=== PATIENT | female | born 1955 | race Two or more races ===

== ENCOUNTER 2016-06-13 12:03 | Emergency (ER) | payer OTHER ==
[2016-06-13 12:17] VITALS: TEMP 98.4; BMI 24.0
--- NOTE | 2016-06-13 13:02 | PDOC ---
History of Present Illness - General History Source: Patient Exam Limitations: No Limitations - History of Present Illness Initial Comments: 06/13/16 13:12 The patient is a 60 year old female with a significant past medical history of high cholesterol and rheumatoid arthritis, who presents to the ED with left sided rib cage pain that radiates to the chest since Monday. Patient states pain is reproducible while laying flat. Patient stated pain is worse while taking deep breathes. Patient states she has never had these symptoms in the past. Patient states she had tylenol with no alleviation. Patient denies cough, fever. PCP: Dr. Eugene Mccarthy <Jeromy Gu - Last Filed: 06/13/16 13:12> <Taisha Sanchez - Last Filed: 06/13/16 22:41> - General Chief Complaint: Pain Stated Complaint: SOB, LT SIDE PAIN Time Seen by Provider: 06/13/16 12:57 Past History <Jeromy Gu - Last Filed: 06/13/16 13:12> - Past Medical History Hypercholesterolemia: Yes - Surgical History Orthopedic Surgery: Yes - Psycho/Social/Smoking Cessation Hx Anxiety: No Suicidal Ideation: No Smoking Status: No Smoking History: Never smoked Have you smoked in the past 12 months: No Number of Cigarettes Smoked Daily: 0 Information on smoking cessation initiated: No Hx Alcohol Use: No Drug/Substance Use Hx: No Substance Use Type: None Hx Substance Use Treatment: No <Taisha Sanchez - Last Filed: 06/13/16 22:41> - Past Medical History Allergies/Adverse Reactions: Allergies Allergy/AdvReac Type Severity Reaction Status Date / Time No Known Allergies Allergy Verified 06/13/16 12:17 Home Medications: Ambulatory Orders Oxycodone HCl/Acetaminophen [Percocet 5/325 -] 1 tab PO Q6H #10 tablet 12/29/14 Silver Sulfadiazine 1% Top Cr [Silvadene -] 1 applic TP BID #1 jar 12/29/14 Ibuprofen [Motrin -] 600 mg PO TID PRN #21 tablet 06/13/16 Methocarbamol [Robaxin -] 500 mg PO BID PRN #14 tablet 06/13/16 Review of Systems - Review of Systems Able to Perform ROS?: Yes Comments:: 06/13/16 13:12 GENERAL/CONSTITUTIONAL: No fever or chills. No weakness. HEAD, EYES, EARS, NOSE AND THROAT: No change in vision. No ear pain or discharge. No sore throat. CARDIOVASCULAR: No chest pain or shortness of breath. RESPIRATORY: + difficulty breathing. No cough, wheezing, or hemoptysis. GASTROINTESTINAL: No nausea, vomiting, diarrhea or constipation. GENITOURINARY: No dysuria, frequency, or change in urination. MUSCULOSKELETAL: + left sided rib pain that radiates to the chest. No joint or muscle swelling or pain. No neck or back pain. SKIN: No rash NEUROLOGIC: No headache, vertigo, loss of consciousness, or change in strength/ sensation. ENDOCRINE: No increased thirst. No abnormal weight change. HEMATOLOGIC/LYMPHATIC: No anemia, easy bleeding, or history of blood clots. ALLERGIC/IMMUNOLOGIC: No hives or skin allergy. <Jeromy Gu - Last Filed: 06/13/16 13:12> *Physical Exam - Vital Signs Last Vital Signs Temp Pulse Resp BP Pulse Ox 98.4 F 73 18 111/77 99 06/13/16 12:14 06/13/16 12:14 06/13/16 12:14 06/13/16 12:14 06/13/16 12:14 - Physical Exam Comments: 06/13/16 13:13 GENERAL: Awake, alert, and fully oriented, in no acute distress. Symptoms are reproducible while patient lies flat. HEAD: No signs of trauma EYES: PERRLA, EOMI, sclera anicteric, conjunctiva clear ENT: Auricles normal inspection, hearing grossly normal, nares patent, oropharynx clear without exudates. Moist mucosa NECK: Normal ROM, supple, no lymphadenopathy, JVD, or masses LUNGS: Breath sounds equal, clear to auscultation bilaterally. No wheezes, and no crackles HEART: Regular rate and rhythm, normal S1 and S2, no murmurs, rubs or gallops ABDOMEN: Soft, nontender, normoactive bowel sounds. No guarding, no rebound. No masses EXTREMITIES: Normal range of motion, no edema. No clubbing or cyanosis. No cords, erythema, or tenderness NEUROLOGICAL: Cranial nerves II through XII grossly intact. Normal speech, normal gait SKIN: Warm, Dry, normal turgor, no rashes or lesions noted. <Jeromy Gu - Last Filed: 06/13/16 13:12> - Vital Signs Last Vital Signs Temp Pulse Resp BP Pulse Ox 98.4 F 73 18 111/77 99 06/13/16 12:14 06/13/16 12:14 06/13/16 12:14 06/13/16 12:14 06/13/16 12:14 <Taisha Sanchez - Last Filed: 06/13/16 22:41> ED Treatment Course - LABORATORY CBC & Chemistry Diagram: 06/13/16 13:10 06/13/16 13:10 <Taisha Sanchez - Last Filed: 06/13/16 22:41> Medical Decision Making - Medical Decision Making Addendum to the exam- patient's pain is reproducible to L sided mid and lower ribs along the mid-axillary line. Patient is low risk for ACS based on clinical history. Initially suspected pericarditis, but as I monitored patient, a musculoskeletal etiology became more apparent. Will treat with pain medication and muscle relaxer. <Taisha Sanchez - Last Filed: 06/13/16 22:41> *DC/Admit/Observation/Transfer - Attestations Scribe Attestion: 06/13/16 13:14 Documentation prepared by Jeromy Gu, acting as medical nurse for Taisha Sanchez MD, . <Jeromy Gu - Last Filed: 06/13/16 13:12> - Discharge Dispostion Admit: No <Taisha Sanchez - Last Filed: 06/13/16 22:41> Diagnosis at time of Disposition: Atypical chest pain - Discharge Dispostion Disposition: HOME Condition at time of disposition: Stable - Prescriptions Prescriptions: Ibuprofen [Motrin -] 600 mg PO TID PRN #21 tablet PRN Reason: Pain Methocarbamol [Robaxin -] 500 mg PO BID PRN #14 tablet PRN Reason: Muscle Spasms - Referrals Referrals: Eugene Mccarthy MD [Primary Care Provider] - - Patient Instructions Printed Discharge Instructions: DI for Atypical Chest Pain Print Language: UZBEK
[2016-06-13] MEDS ORDERED: ASPIRIN 81 MG CHEWABLE TABLETS ONE (13:09)
[2016-06-13] MEDS ORDERED: ASPIRIN 325 MG TABLET PO ONE (13:09)
[2016-06-13 13:26] LABS: EOSINOPHIL 1.2 % (0-4.5); MCH 31.6 pg (25.7-33.7); MCHC 33.4 g/dl (32.0-36.0); MEAN CELL VOLUME 94.4 fl (80-96); NEUTROPHILS 52.7 % (42.8-82.8); PLATELET COUNT 221 K/MM3 (134-434); RDW 13.2 % (11.6-15.6); WHITE BLOOD COUNT 4.8 K/mm3 (4.0-10.0)
[2016-06-13 14:03] LABS: ALBUMIN 3.8 g/dl (3.4-5.0); ANION GAP 9 (8-16); BILIRUBIN,TOTAL 0.4 mg/dL (0.2-1.0); CALCIUM 9.2 mg/dL (8.5-10.1); CO2 29 mmol/L (21-32); CREATININE 0.7 mg/dL (0.55-1.02); GLUCOSE,RANDOM 84 mg/dL (74-106); SGOT/AST 14 U/L (15-37); SGPT/ALT 20 U/L (12-78)
[2016-06-13 14:06] LABS: ALK PHOS 64 U/L (45-117); TROPONIN I < 0.02 ng/ml (0.00-0.05)
[2016-06-13] MEDS ORDERED: OXYCODONE/APAP 5/325MG COMBO TABLET PO ONE (14:30)
[2016-06-13] MEDS ORDERED: COLCHICINE 0.6 MG TABLET (FP) PO ONE (14:31)
[2016-06-13] MEDS ORDERED: COLCHICINE 0.6 MG TABLET (FP) ONE (14:50)
[2016-06-13] MEDS ORDERED: OXYCODONE/APAP 5/325MG COMBO TABLET ONE (14:50)
[2016-06-13 16:33] VITALS: BP 115/78; PULSE 51
--- NOTE | 2016-06-13 17:19 | EKG ---
Test Reason : Blood Pressure : / mmHG Vent. Rate : 056 BPM Atrial Rate : 056 BPM P-R Int : 126 ms QRS Dur : 072 ms QT Int : 420 ms P-R-T Axes : 061 051 033 degrees QTc Int : 405 ms SINUS BRADYCARDIA OTHERWISE NORMAL ECG WHEN COMPARED WITH ECG OF 11-DEC-2013 03:51, T WAVE VARIATION Confirmed by ANUJA GIPSON MD ([id number]) on 06/13/2016 5:19:16 PM Referred By: Confirmed By:ANUJA GIPSON MD
== END 2016-06-13 16:32 | disposition home or self-care (01) ==
LOC: JER 12:03
DX: R07.89 Other chest pain (principal); E78.00 Pure hypercholesterolemia, unspecified; M06.80 Other specified rheumatoid arthritis, unspecified site
CPT/HCPCS: 36415; 71010-TC; 80053; 82550; 84484; 85025; 93005; 93010; 99283-25

== ENCOUNTER 2016-08-18 10:56 | Emergency (ER) | payer OTHER ==
[2016-08-18 11:02] VITALS: BP 132/59; PULSE 73; TEMP 97.9; BMI 24.3
[2016-08-18] MEDS ORDERED: IBUPROFEN 400 MG TABLET (FP) PO ONE ×2 (12:20→12:27)
--- NOTE | 2016-08-18 12:30 | PDOC ---
History of Present Illness - General Chief Complaint: Pain Stated Complaint: SWOLLEN LT MID FINGER Time Seen by Provider: 08/18/16 11:24 History Source: Patient - History of Present Illness Occurred: reports: yesterday Upper Extremity Pain Location: left: 3rd finger, 4th finger Past History - Past Medical History Allergies/Adverse Reactions: Allergies Allergy/AdvReac Type Severity Reaction Status Date / Time No Known Allergies Allergy Verified 08/18/16 11:02 Home Medications: Ambulatory Orders NK [No Known Home Medication] 08/18/16 Hypercholesterolemia: Yes - Surgical History Orthopedic Surgery: Yes - Psycho/Social/Smoking Cessation Hx Anxiety: No Suicidal Ideation: No Smoking Status: No Smoking History: Never smoked Have you smoked in the past 12 months: No Number of Cigarettes Smoked Daily: 0 Information on smoking cessation initiated: No Hx Alcohol Use: No Drug/Substance Use Hx: No Substance Use Type: None Hx Substance Use Treatment: No Review of Systems - Review of Systems Constitutional: No: Chills, Fever Integumentary: Yes: Erythema *Physical Exam - Vital Signs Last Vital Signs Temp Pulse Resp BP Pulse Ox 97.9 F 73 18 132/59 100 08/18/16 10:59 08/18/16 10:59 08/18/16 10:59 08/18/16 10:59 08/18/16 10:59 - Physical Exam General Appearance: Yes: Appropriately Dressed. No: Apparent Distress HEENT: positive: Normal Voice Neck: positive: Supple Respiratory/Chest: negative: Respiratory Distress Extremity: positive: Tender (minimal tp to tip of L 3/5th fingers, sensation intact, cap refill intact). negative: Cyanosis, Swelling, Erythema Integumentary: positive: Dry, Warm Neurologic: positive: Fully Oriented, Alert, Normal Mood/Affect Medical Decision Making - Medical Decision Making 08/18/16 12:30 61 yo F. no sig hx, here w/ pain and numbers to L 3rd and 4th digits after shovelling snow yesterday. States skin of tip of fingers were also red yesterday. States she was wearing gloves. Reports that sxs have been improving. Pt well [facility] w/ unremarkable exam. M/l Grade 1 frostbite (pain/erythema, no cyanosis). Pt discharge with reassurance that mild frostbit usually leaves no permanent sequelae. To take otc meds as needed 08/18/16 12:40 08/18/16 12:41 *DC/Admit/Observation/Transfer Diagnosis at time of Disposition: Frostbite Qualifiers: Encounter type: initial encounter Qualified Code(s): T33.90XA - Superficial frostbite of unspecified sites, initial encounter - Discharge Dispostion Disposition: HOME Condition at time of disposition: Good - Referrals Referrals: Norman Mccarthy MD [Primary Care Provider] - - Patient Instructions Printed Discharge Instructions: DI for Frostbite, Winter Warning: Tips for Preventing Frostbite and Hypothermia Additional Instructions: Take motrin as needed for pain Print Language: SWEDISH
== END 2016-08-18 12:38 | disposition home or self-care (01) ==
LOC: JERFT 10:56
DX: T33.532A Superficial frostbite of left finger(s), initial encounter (principal); T68.XXXA Hypothermia, initial encounter; T69.8XXA Other specified effects of reduced temperature, initial encounter; X31.XXXA Exposure to excessive natural cold, initial encounter; Y93.H1 Activity, digging, shoveling and raking; Y92.89 Other specified places as the place of occurrence of the external cause; Y99.8 Other external cause status
CPT/HCPCS: 99281-25

== ENCOUNTER 2017-04-17 11:50 | Emergency (ER) | payer OTHER ==
[2017-04-17 12:06] VITALS: BP 125/70; PULSE 64; TEMP 98; BMI 25.7
--- NOTE | 2017-04-17 12:29 | PDOC ---
History of Present Illness - General Chief Complaint: Pain Stated Complaint: FOOT PAIN Time Seen by Provider: 04/17/17 12:09 History Source: Patient Exam Limitations: No Limitations - History of Present Illness Initial Comments: 04/17/17 13:22 Patient is a 61-year-old female who presents to emergency department today complaining of right foot pain. Patient states that the arch of her foot hurts. This is happened to her once before where she received an "injection" in her foot approximately 12 years ago at another institution.. She states that the pain went away after she received the injection. Today she states that that pain feels the same as it did approximately 12 years ago. She presents asking for a injection in her foot denies fevers, chills, weakness in the foot, numbness and tingling. Past History - Travel Traveled outside of the country in the last 30 days: No Close contact w/someone who was outside of country & ill: No - Past Medical History Allergies/Adverse Reactions: Allergies Allergy/AdvReac Type Severity Reaction Status Date / Time No Known Allergies Allergy Verified 04/17/17 12:03 Home Medications: Ambulatory Orders NK [No Known Home Medication] 08/18/16 COPD: No Hypercholesterolemia: Yes - Surgical History Orthopedic Surgery: Yes - Suicide/Smoking/Psychosocial Hx Smoking Status: No Smoking History: Never smoked Have you smoked in the past 12 months: No Number of Cigarettes Smoked Daily: 0 Information on smoking cessation initiated: No Hx Alcohol Use: No Drug/Substance Use Hx: No Substance Use Type: None Hx Substance Use Treatment: No Review of Systems - Review of Systems Able to Perform ROS?: Yes Comments:: 04/17/17 13:24 CONSTITUTIONAL: Absent: fever, chills, diaphoresis, generalized weakness, malaise, loss of appetite HEENT: Absent: rhinorrhea, nasal congestion, throat pain, throat swelling, difficulty swallowing, mouth swelling, ear pain, eye pain, visual Changes CARDIOVASCULAR: Absent: chest pain, loss of consciousness, palpitations, irregular heart rate, peripheral edema RESPIRATORY: Absent: cough, shortness of breath, dyspnea with exertion, orthopnea, wheezing, stridor, hemoptysis GASTROINTESTINAL: Absent: abdominal pain, abdominal distension, nausea, vomiting, diarrhea, constipation, melena, hematochezia GENITOURINARY: Absent: dysuria, frequency, urgency, hesitancy, hematuria, flank pain, genital pain MUSCULOSKELETAL: Present: R foot pain. Absent: myalgia, arthralgia, joint swelling SKIN: Absent: rash, itching, pallor HEMATOLOGIC/IMMUNOLOGIC: Absent: easy bleeding, easy bruising, lymphadenopathy, frequent infections ENDOCRINE: Absent: unexplained weight gain, unexplained weight loss, heat intolerance, cold intolerance NEUROLOGIC: Absent: headache, focal weakness or paresthesias, dizziness, unsteady gait, seizure, mental status changes, bladder or bowel incontinence PSYCHIATRIC: Absent: anxiety, depression, suicidal or homicidal ideation, hallucinations. Is the patient limited Sinhala proficient: No *Physical Exam - Vital Signs Last Vital Signs Temp Pulse Resp BP Pulse Ox 98.0 F 64 18 125/70 100 04/17/17 12:04 04/17/17 12:04 04/17/17 12:04 04/17/17 12:04 04/17/17 12:04 ED Treatment Course - RADIOLOGY Radiology Studies Ordered: Category Date Time Status ANKLE & FOOT-RIGHT* [RAD] Stat Radiology 04/17/17 12:09 Taken *DC/Admit/Observation/Transfer Diagnosis at time of Disposition: Plantar fasciitis of right foot - Discharge Dispostion Disposition: HOME Condition at time of disposition: Stable Admit: No - Referrals Referrals: Pato Liu MD [Staff Physician] - Elian Jernigan MD [Staff Physician] - Eugene Mccarthy MD [Primary Care Provider] - - Patient Instructions Printed Discharge Instructions: DI for Plantar Fasciitis Additional Instructions: You have plantar faciitis. This is inflammation of the muscles in the arch of your foot. Ice your foot to help with the symptoms. Freeze a water bottle and roll your foot on the bottle three-4 times a day to help with your symptoms. Stretch your foot as well. Follow up with podiatry for further management of your symptoms. You have been provided with Dr. Krishnamurthy's number. Return to the ED if you have worsening of your symptoms are unable to walk or have any other changes in your symptoms. Tienes nani faciitis plantar Esta es la inflamacin de los msculos en el arco de wheatley pie. Hielo wheatley pie para ayudar con los sntomas. Congele nani botella de agua y mueva el pie sobre la botella nroah o cuatro veces al da para ayudarlo con carmine sntomas. Estira tu pie tambin. Reji un seguimiento con podologa para un mayor control de carmine sntomas. Le zapien proporcionado el nmero del Dr. Krishnamurthy. Regrese al departamento de emergencias si tiene un empeoramiento de carmine s ntomas y no puede caminar o tiene otros cambios en carmine sntomas. Print Language: NORTHERN IRISH - Post Discharge Activity
== END 2017-04-17 12:50 | disposition home or self-care (01) ==
LOC: JERFT 11:50
DX: M72.2 Plantar fascial fibromatosis (principal)
CPT/HCPCS: 73610-TC-RT; 73630-TC-RT; 99281-25

== ENCOUNTER 2017-06-28 11:56 | Day surgery (SDC) | payer OTHER ==
[2017-06-27 11:00] VITALS: BMI 26.0
[2017-06-28] MEDS ORDERED: LIDOCAINE 1%/EPI 1:100000 (20 ML MULTI DOSE VIAL) ONE (13:38)
[2017-06-28] MEDS ORDERED: BUPIVACAINE HCL/PF 0.5% (5MG/ML) 10 ML VIAL ONE (13:38)
--- NOTE | 2017-06-28 13:54 | HP ---
Admitting History and Physical - Primary Care Physician PCP: Elian Jernigan (Personnel Associate) - Admission Chief Complaint: Chronic pain in the plantar aspect of the right heel. History of Present Illness: patient has undergone conservative measures to protect the right plantar heel including the use of orthotic devices and physical therapy. Pain failed to remit so MRI was performed. small fluid filled cyst was found in the fat pad of the right heel below the medial plantar tubercle of the calcaneus and the plantar fascia origin. The plantar fascia origin was found to be hypertrophic and fissured as is found commonly in plantar fasciitis. Surgical evacuation of the cyst and topax procedure of the plantar fascia was planned. - Past Medical History Cardiovascular: Yes: Hyperlipdemia Musculoskeletal: Yes: Other (no external sign evidient on exam of the right plantar fascia) - Past Surgical History Past Surgical History: Yes: - Smoking History Smoking history: Never smoked Have you smoked in the past 12 months: No Aproximately how many cigarettes per day: 0 - Alcohol/Substance Use Hx Alcohol Use: No Home Medications - Allergies Allergies/Adverse Reactions: Allergies Allergy/AdvReac Type Severity Reaction Status Date / Time No Known Allergies Allergy Verified 06/28/17 12:37 - Home Medications Home Medications: Ambulatory Orders Aspirin 81 mg PO DAILY 06/27/17 Calcium Carbonate [Calcium] 500 mg PO DAILY 06/27/17 Gabapentin 300 mg PO DAILY 06/27/17 Lansoprazole [Prevacid] 30 mg PO DAILY 06/27/17 Meloxicam 15 mg PO DAILY 06/27/17 Multivitamin [Poly-Vitamin] 1 each PO DAILY 06/27/17 Nizatidine 150 mg PO DAILY 06/27/17 Rosuvastatin Calcium [Crestor] 10 mg PO DAILY 06/27/17 Physical Examination Vital Signs: Vital Signs Temperature 98.1 F 06/28/17 12:48 Pulse Rate 51 L 06/28/17 12:48 Respiratory Rate 16 06/28/17 12:48 Blood Pressure 135/67 06/28/17 12:48 O2 Sat by Pulse Oximetry (%) 97 06/28/17 12:48 Assessment/Plan Assessment Right plantar fat pad fluid filled cyst Right plantar fasciitis. Plan Right cyst aspiration Right Muir procedure of plantar fascia with bone marrow aspiration of the lateral wall of the calcaneus and transfer to the plantar fascia.
[2017-06-28] MEDS ORDERED: oxyCODONE HCL 5 MG TABLET PO PRN (13:57)
[2017-06-28] MEDS ORDERED: IBUPROFEN 800 MG/8 ML IJ IVPB PRN (13:57)
[2017-06-28] MEDS ORDERED: ONDANSETRON 4 MG/2 ML VIAL IVPUSH PRN (13:57)
[2017-06-28] MEDS ORDERED: LACTATED RINGERS SOLUTION 1,000 ML IV SCH (14:00)
[2017-06-28] MEDS ORDERED: ceFAZolin SODIUM 1 GM VIAL ONE (14:32)
[2017-06-28] MEDS ORDERED: MIDAZOLAM HCL 2 MG/2 ML SINGLE DOSE VIAL ONE ×2 (14:32→14:57)
[2017-06-28] MEDS ORDERED: LIDOCAINE HCL/PF 2% SDV 5ML VIAL ONE (14:32)
[2017-06-28] MEDS ORDERED: PROPOFOL 20 ML ONE ×3 (14:32→15:31)
[2017-06-28] MEDS ORDERED: ceFAZolin SODIUM 1 GM VIAL IVPB ONE (14:37)
[2017-06-28 18:21] VITALS: BP 139/68
[2017-06-28 18:39] VITALS: PULSE 68
[2017-06-28 19:59] VITALS: TEMP 98.1
--- NOTE | 2017-06-29 09:22 | OP ---
DATE OF OPERATION: 06/28/2017 PREOPERATIVE DIAGNOSIS: Plantar calcaneal fat pad cyst and plantar fasciitis of the right heel. POSTOPERATIVE DIAGNOSIS: Plantar calcaneal fat pad cyst and plantar fasciitis of the right heel. PROCEDURE: Plantar fasciotomy, prolotherapy, with bone marrow transfer to the right heel, with puncture and attempt at aspiration of the cyst in the fat pad. DESCRIPTION OF PROCEDURE: Under fractional anesthesia and a surgical scrub with Betadine scrub and solution x2, the patient was inspected in the prone position. The external surface of the heel was completely normal; however, the point of maximum tenderness was previously marked and identified. This was at the origin of the plantar fascia at the medial plantar tubercle. Using a number 18-gauge needle, the site of the cyst was punctured. The needle was advanced into the cyst and aspiration was attempted. Unfortunately, no fluid was extracted from the cyst. Using a 0.062 K-wire, a checkerboard oriented set of punctures was made in the plantar fascia area at the origin, 16 puncture holes in total. Using the K-wire, the puncture holes were carried through the fat pad and through the fascia to the calcaneus. It was originally intended that a topaz procedure would be performed; however, the operating room could not supply me with a Olympia wand. This was an unexpected development while the patient was already on the table, so it was decided to perform the prolotherapy fasciotomy using a K-wire instead. This was performed, and then using a Jamshidi needle along the lateral wall of the calcaneus, the Jamshidi needle was placed into the body of the posterior tubercle of the calcaneus. 3 milliliter of bone marrow was extracted and then it was immediately injected into the K-wire prolotherapy holes. Following completion of this bone marrow transfer, Steri-Strips were applied to the lateral wall puncture hole and the plantar puncture holes, and then a dry sterile dressing was applied to the right foot. The patient tolerated the surgical procedure well and left the operating room stable, alert, awake, and in no pain. She will be sent home, using crutches and a Cam walker boot to protect the surgical area. JEROME MCKEON/[id number] [facility]PITALSissy
== END 2017-06-28 18:39 | disposition home or self-care (01) ==
LOC: JASU-SURG 11:56
PROVIDERS: ATTEND Podiatrist Foot Surgery
PROC: 079T3ZX Drainage of Bone Marrow, Percutaneous Approach, Diagnostic (ICD-10-PCS; 2017-06-28)
PROC: 0J8Q0ZZ Division of Right Foot Subcutaneous Tissue and Fascia, Open Approach (ICD-10-PCS; principal; 2017-06-28 13:30)
DX: M72.2 Plantar fascial fibromatosis (principal); M79.671 Pain in right foot; D49.2 Neoplasm of unspecified behavior of bone, soft tissue, and skin
CPT/HCPCS: 94760; 97116-GP

== ENCOUNTER 2020-03-10 21:23 | Emergency (ER) | payer OTHER ==
[2020-03-10 21:37] VITALS: TEMP 98.1; BMI 28.3
--- NOTE | 2020-03-10 21:37 | PDOC ---
Rapid Medical Evaluation Time Seen by Provider: 03/10/20 21:33 Medical Evaluation: Allergies Allergy/AdvReac Type Severity Reaction Status Date / Time No Known Allergies Allergy Verified 06/28/17 12:37 03/10/20 21:33 Pt presents for r/o DVT of the L lower leg. States starting this afternoon the LLE got warm, swollen and painful. Exam: TTP of the L calf with mild swelling Orders: labs, duplex Pt to proceed to the ER for further evaluation Discharge Disposition - Diagnosis Leg pain Qualifiers: Laterality: left Qualified Code(s): M79.605 - Pain in left leg - Referrals - Patient Instructions - Post Discharge Activity
--- OUTSIDE RECORDS SUMMARY | 2020-03-10 21:44 | XMS ---
:1955 [facility] Team Providers Name Role Phone Jax Mullins Unavailable [phone] ASIA MARIE, ROSALIND Unavailable Unavailable [facility], [id number] Unavailable Unavailable Carranza, Justyna Unavailable Unavailable Carranza, Justyna Unavailable Unavailable Carranza, Justyna Unavailable Unavailable Carranza, Justyna Unavailable Unavailable Carranza, Justyna Unavailable Unavailable Carranza, Justyna Unavailable Unavailable Carranza, Justyna Unavailable Unavailable Carranza, Justyna Unavailable Unavailable Carranza, Justyna Unavailable Unavailable Carranza, Justyna Unavailable Unavailable Varinder-Collazo, Taisha Unavailable [phone] Varinder-Collazo, Taisha Unavailable [phone] Asia, Rosalind Unavailable [phone] Asia Rosalind Unavailable [phone] VARINDER-COLLAZO OCTAVIANO, OCTAVIANO Unavailable Unavailable Re-disclosure Warning The records that you are about to access may contain information from federally- assisted alcohol or drug abuse programs. If such information is present, then the following federally mandated warning applies: This information has been disclosed to you from records protected by federal confidentiality rules (42 CFR part 2). The federal rules prohibit you from making any further disclosure of this information unless further disclosure is expressly permitted by the written consent of the person to whom it pertains or as otherwise permitted by 42 CFR part 2. A general authorization for the release of medical or other information is NOT sufficient for this purpose. The Federal rules restrict any use of the information to criminally investigate or prosecute any alcohol or drug abuse patient.The records that you are about to access may contain highly sensitive health information, the redisclosure of which is protected by Article 27-F of the [facility] Public Health law. If you continue you may haveaccess to information: Regarding HIV / AIDS; Provided by facilities licensed or operated by the [facility] Office of Mental Health; or Provided by the [facility] Office for People With Developmental Disabilities. If such information is present, then the following [facility] mandated warning applies: This information has been disclosed to you from confidential records which are protected by state law. State law prohibits you from making any further disclosure of this information without the specific written consent of the person to whom it pertains, or as otherwise permitted by law. Any unauthorized further disclosure in violation of state law may result in a fine or [place] health [facility] sentence or both. A general authorization for the release of medical or other information is NOT sufficient authorization for further disclosure. Allergies and Adverse Reactions Type Description Substance Reaction Status Data Source(s ) Drug allergy No Known Drug No Known Drug [facility] All[facility]ies [facility] Propensity to Propensity to Propensity to NEXTG EN ([facility] adverse reactions adverse reactions adverse reactions [facility] (disorder) (disorder) (disorder) Center) Encounters Encounter Providers Location Date Indications Data Source(s ) Attender: Mental Health 02/13/2020 NEXTGEN (Sa int [facility] 10:01:00 [facility] EDT [facility]) 02/13/2020 10:01:00 AM EDT OutpatientOFFICE/ Attender: Mental Health 02/13/2020 NEXT GEN ([facility] OUTPATIENT VISIT, [facility] 09:31:00 [facility] EDT [facility]) 02/13/2020 09:31:00 AM EDT OutpatientOFFICE/ Attender: Mental Health 12/19/2019 NEXT GEN ([facility] OUTPATIENT VISIT, [facility] 10:09:00 [facility] EDT - Center) 12/19/2019 10:09:00 AM EDT OutpatientOFFICE/ Attender: Mental Health 11/13/2019 NEXT GEN ([facility] OUTPATIENT VISIT, [facility] 08:49:00 [facility] AM EDT - Center) 11/13/2019 08:49:00 AM EDT Attender: Mental Health 11/12/2019 NEXTGEN ( int [facility] 03:43:00 [facility] PM EDT - Center) 11/12/2019 03:43:00 PM EDT Attender: Mental Health 10/22/2019 NEXTGEN ( int [facility] 12:22:00 [facility] PM EDT - Center) 10/22/2019 12:22:00 PM EDT Attender: Mental Health 10/03/2019 NEXTGEN ( int [facility] 10:52:00 [facility] AM EDT - Center) 10/03/2019 10:52:00 AM EDT Attender: Mental Health 09/23/2019 NEXTGEN ( int [facility] 09:45:00 [facility] AM EDT - Center) 09/23/2019 09:45:00 AM EDT OutpatientOFFICE/ Attender: Mental Health 09/20/2019 NEXT GEN ([facility] OUTPATIENT VISIT, [facility] 09:01:00 [facility] Medical EST [facility] AM EDT - Center) 09/20/2019 09:01:00 AM EDT OutpatientOFFICE/ Attender: Mental Health 07/26/2019 NEXT GEN ([facility] OUTPATIENT VISIT, [facility] 10:25:00 [facility] Medical EST [facility] AM EST - Center) 07/26/2019 10:25:00 AM EST Outpatient Attender: [id number] 07/23/2019 [facility] ([facility] 12:24:20 [facility] EST [facility]) Patient admitted. Attender: [facility] 07/02/2019 SHA LEMON [facility] 04:19:00 PM EST - Jaelyn sephs 07/02/2019 Medical 04:19:00 PM EST Center) Outpatient Attender: OCTAVIANO Savage 06/15/2019 [facility] VARINDER-COLLAZO 10:03:00 AM EST [facility] Center ELIZAAttender: ROSALIND LUZLENAAdmitter: OCTAVIANO BRUMFIELD Attender: [facility] 06/15/2019 NEXT EN ([facility] 10:03:00 AM EST - Robert s 06/15/2019 Medical 10:03:00 AM EST Center) 06/15/2019 [facility] 12:00:00 AM EST - Medical Center 07/31/2011 12:00:00 AM EST OutpatientOFFICE/ Attender: [facility] 05/31/[facility] OUT[facility], [facility] 10:18:00 AM EST - [facility] EST 05/31/2019 Medical 10:18:00 AM EST Center) OutpatientOFFICE/ Attender: [facility] 04/18/2019 [facility] ([facility] OUTPATIENT VISIT, [facility] 10:11:00 AM EST - [facility] EST 04/18/2019 Medical 10:11:00 AM EST Center) OutpatientOFFICE/ Attender: [facility] 03/21/2019 [facility] ([facility] OUTPATIENT VISIT, [facility] 09:45:00 AM EDT - [facility] EST 03/21/2019 Medical 09:45:00 AM EDT Center) OutpatientOFFICE/ Attender: [facility] 02/20/2019 [facility] ([facility] OUTPATIENT VISIT, [facility] 09:33:00 AM EDT - [facility] EST 02/20/2019 Medical 09:33:00 AM EDT Center) OutpatientOFFICE/ Attender: [facility] 01/18/2019 [facility] ([facility] OUTPATIENT VISIT, [facility] 09:08:00 AM EDT - [facility] EST 01/18/2019 Medical 09:08:00 AM EDT Center) Outpatient 01/04/2019 [facility] ([place] 11:57:14 AM EDT [facility]) Patient admitted. Outpatient 01/04/2019 11:57:10 AM EDT [facility] ([facility]) Patient admitted. OutpatientOFFICE/OUTPATIENT Attender: [place] [facility] 12/24/2018 NEXTGEN VISIT, EST [facility] 09:06:00 AM ([facility] EDT - [facility] 12/24/2018 Medical 09:06:00 AM Center) EDT OutpatientOFFICE/OUTPATIENT Attender: [facility] 11/26/2018 NEXTGEN VISIT, [facility] 10:37:00 AM ([facility] 11/26/2018 Medical 10:37:00 AM Center) EDT Attender: [facility] 11/12/2018 [facility] 08:26:00 AM ([facility] 11/12/2018 Medical 08:26:00 AM Center) EDT OutpatientOFFICE/OUTPATIENT Attender: [facility] 10/04/2018 NEXTGEN VISIT, [facility] 09:41:00 AM ([facility] 10/04/2018 Medical 09:41:00 AM Center) EDT OutpatientOFFICE/OUTPATIENT Attender: [facility] 08/09/2018 NEXTGEN VISIT, [facility] 09:34:00 AM ([facility] 08/09/2018 Medical 09:34:00 AM Center) EST Outpatient Attender: OCTAVIANO 06/15/[address] [facility] 10:05:00 AM [facility] BRUMFIELDAdmitter: [facility] Medical [facility] OCTAVIANO OutpatientOFFICE/OUTPATIENT Attender: [facility] 06/15/2018 NEXTGEN VISIT, [facility] 08:24:00 AM ([facility] 06/15/2018 Medical 08:24:00 AM Center) [facility] 06/15/2018 [facility] 12:00:[address] [facility] 07/31/2011 [place] 12:00:00 AM EST Attender: [facility] 07/20[facility]2017 Medical 10:05:00 AM Center) EST Family 07/31/2011 [facility] Health 04:38:00 PM ([facility] 07/31/2011 Medical 04:38:00 PM Center) EST Attender: Justyna Family 09/21/2009 [facility] 02:52:00 PM ([facility] 09/21/2009 Medical 02:52:00 PM Center) EDT Attender: Jax Beltran 09/01/2009 NEXTGEN [facility] 01:06:00 PM ([facility] EDT - [facility] 09/01/2009 Medical 01:06:00 PM Center) EDT Immunizations Vaccine Date Status Description Data Source(s) IIV3. This vaccine 09/01/2009 completed flu (split) NEXTGEN ( [facility] code is one of two 12:00:00 AM EDT preservative free, 3 [facility] which replace CVX yrs or older Center) 15, influenza, split virus. Source: New Immunization Record Medications Medication Brand Start Product Dose Route [facility] Indications Reaction Description Data Name Date Form Instructions Instructions Source(s) Perphenazin perphe ORAL active take 1 NEXTGEN e 4 MG Oral nazine 2020 {tabl tablet by ([facility] Tablet 4 mg 12:00: et} oral route [facility] perphenazin tablet 00 AM every Medi fletcher e 4 mg EDT bedtime for Center ) tablet psychosis Nortriptyli nortri ORAL active take 2 NEXTGEN ne 25 MG ptylin 2020 {caps capsule by (S aint Oral e 25 12:00: ule} oral route [facility] Capsule mg 00 AM every Medical nortriptyli capsul EDT bedtime for Center) ne 25 mg e anxiety/mood capsule Zolpidem Ambien ORAL active zolpidem N EXTGEN tartrate 10 10 mg 2020 {tabl tartrate 10 ([facility] Oral tablet 12:00: et} MG Oral [facility] Tablet 00 AM Tablet Medical [Ambien] EDT [Ambien] Center) Ambien 10 mg tablet Fluoxetine Prozac ORAL active fluoxeti ne NEXTGEN 40 MG Oral 40 mg 2020 {caps 40 MG Oral ( [facility] Capsule capsul 12:00: ule} Capsule [facility] [Prozac] e 00 AM [Prozac] Medica l Prozac 40 EDT Center) mg capsule Perphenazin perphe ORAL complet take 1 NEXTGEN e 4 MG Oral nazine 2020 {tabl ed tablet by ([facility] Tablet 4 mg 12:00: et} oral route [facility] perphenazin tablet 00 AM every Medi fletcher e 4 mg EDT bedtime for Center ) tablet psychosis Zolpidem Ambien ORAL complet zolpidem NEXTGEN tartrate 10 10 mg 2020 {tabl ed tartrate 10 ([facility] Oral tablet 12:00: et} MG Oral [facility] Tablet 00 AM Tablet Medical [Ambien] EDT [Ambien] Center) Ambien 10 mg tablet Fluoxetine Prozac ORAL complet fluoxet ine NEXTGEN 40 MG Oral 40 mg 2020 {caps ed 40 MG Oral ( [facility] Capsule capsul 12:00: ule} Capsule [facility] [Prozac] e 00 AM [Prozac] Medica l Prozac 40 EDT Center) mg capsule Nortriptyli nortri ORAL complet take 2 NEXTGEN ne 25 MG ptylin 2020 {caps ed capsule by (S aint Oral e 25 12:00: ule} oral route [facility] Capsule mg 00 AM every Medical nortriptyli capsul EDT bedtime for Center) ne 25 mg e anxiety/mood capsule Perphenazin perphe ORAL complet take 1 NEXTGEN e 4 MG Oral nazine 2020 {tbl} ed tablet by ([facility] Tablet 4 mg 12:00: oral route [facility] perphenazin tablet 00 AM every Medi fletcher e 4 mg EDT bedtime for Center ) tablet psychosis Nortriptyli nortri ORAL complet take 2 NEXTGEN ne 25 MG ptylin 2020 {caps ed capsule by (S aint Oral e 25 12:00: ule} oral route [facility] Capsule mg 00 AM every Medical nortriptyli capsul EDT bedtime for Center) ne 25 mg e anxiety/mood capsule Fluoxetine Prozac ORAL complet Fluoxet ine NEXTGEN 40 MG Oral 40 mg 2020 {caps ed 40 MG Oral ( [facility] Capsule capsul 12:00: ule} Capsule [facility] [Prozac] e 00 AM [Prozac] Medica l Prozac 40 EDT Center) mg capsule Zolpidem Ambien ORAL complet Zolpidem NEXTGEN tartrate 10 10 mg 2020 {tbl} ed tartrate 10 ([facility] Oral tablet 12:00: MG Oral [facility] Tablet 00 AM Tablet Medical [Ambien] EDT [Ambien] Center) Ambien 10 mg tablet Zolpidem Ambien ORAL complet Zolpidem NEXTGEN tartrate 10 10 mg 2020 {tbl} ed tartrate 10 ([facility] Oral tablet 12:00: MG Oral [facility] Tablet 00 AM Tablet Medical [Ambien] EDT [Ambien] Center) Ambien 10 mg tablet Fluoxetine Prozac ORAL complet Fluoxet ine NEXTGEN 40 MG Oral 40 mg 2020 {caps ed 40 MG Oral ( [facility] Capsule capsul 12:00: ule} Capsule [facility] [Prozac] e 00 AM [Prozac] Medica l Prozac 40 EDT Center) mg capsule Nortriptyli nortri ORAL complet take 2 NEXTGEN ne 25 MG ptylin 2020 {caps ed capsule by (S aint Oral e 25 12:00: ule} oral route [facility] Capsule mg 00 AM every Medical nortriptyli capsul EDT bedtime for Center) ne 25 mg e anxiety/mood capsule Perphenazin perphe ORAL complet take 1 NEXTGEN e 4 MG Oral nazine 2020 {tbl} ed tablet by ([facility] Tablet 4 mg 12:00: oral route [facility] perphenazin tablet 00 AM every Medi fletcher e 4 mg EDT bedtime for Center ) tablet psychosis Nortriptyli nortri ORAL complet take 2 NEXTGEN ne 25 MG ptylin 2020 {caps ed capsule by (S aint Oral e 25 12:00: ule} oral route [facility] Capsule mg 00 AM every Medical nortriptyli capsul EST bedtime for Center) ne 25 mg e anxiety/mood capsule Perphenazin perphe ORAL complet take 1 NEXTGEN e 4 MG Oral nazine 2020 {tbl} ed tablet by ([facility] Tablet 4 mg 12:00: oral route [facility] perphenazin tablet 00 AM every Medi fletcher e 4 mg EST bedtime for Center ) tablet psychosis Fluoxetine Prozac ORAL complet Fluoxet ine NEXTGEN 40 MG Oral 40 mg 2020 {caps ed 40 MG Oral ( [facility] Capsule capsul 12:00: ule} Capsule [facility] [Prozac] e 00 AM [Prozac] Medica l Prozac 40 EST Center) mg capsule Zolpidem Ambien ORAL complet Zolpidem NEXTGEN tartrate 10 10 mg 2019 {tbl} ed tartrate 10 ([facility] MG Oral tablet 12:00: MG Oral [facility] Tablet 00 AM Tablet Medical [Ambien] EST [Ambien] Center) Ambien 10 mg tablet Fluoxetine Prozac ORAL complet Fluoxet ine NEXTGEN 40 MG Oral 40 mg 2018 {caps ed 40 MG Oral ( [facility] Capsule capsul 12:00: ule} Capsule [facility] [Prozac] e 00 AM [Prozac] Medica l Prozac 40 EST Center) mg capsule Zolpidem Ambien ORAL complet Zolpidem NEXTGEN tartrate 10 10 mg 2018 {tbl} ed tartrate 10 ([facility] MG Oral tablet 12:00: MG Oral [place] hs Tablet 00 AM Tablet Medical [Ambien] EST [Ambien] Center) Ambien 10 mg tablet Perphenazin perphe ORAL complet take 1 NEXTGEN e 4 MG Oral nazine 2018 {tbl} ed tablet by ([facility] Tablet 4 mg 12:00: oral route [facility] perphenazin tablet 00 AM every Medi fletcher e 4 mg EST bedtime for Center ) tablet psychosis Nortriptyli nortri ORAL complet take 2 NEXTGEN ne 25 MG ptylin 2018 {caps ed capsule by (S aint Oral e 25 12:00: ule} oral route [facility] Capsule mg 00 AM every Medical nortriptyli capsul EST bedtime for Center) ne 25 mg e anxiety/mood capsule Nortriptyli nortri ORAL complet take 2 NEXTGEN ne 25 MG ptylin 2018 {caps ed capsule by (S aint Oral e 25 12:00: ule} oral route [facility] Capsule mg 00 AM every Medical nortriptyli capsul EDT bedtime for Center) ne 25 mg e anxiety/mood capsule Fluoxetine Prozac ORAL complet Fluoxet ine NEXTGEN 40 MG Oral 40 mg 2018 {caps ed 40 MG Oral ( [facility] Capsule capsul 12:00: ule} Capsule [facility] [Prozac] e 00 AM [Prozac] Medica l Prozac 40 EDT Center) mg capsule Zolpidem Ambien ORAL complet Zolpidem NEXTGEN tartrate 10 10 mg 2019 {tbl} ed tartrate 10 ([facility] MG Oral tablet 12:00: MG Oral [facility] Tablet 00 AM Tablet Medical [Ambien] EDT [Ambien] Center) Ambien 10 mg tablet Perphenazin perphe ORAL complet take 1 NEXTGEN e 4 MG Oral nazine 2018 {tbl} ed tablet by ([facility] Tablet 4 mg 12:00: oral route [facility] perphenazin tablet 00 AM every Medi fletcher e 4 mg EDT bedtime for Center ) tablet psychosis Perphenazin perphe ORAL complet take 1 NEXTGEN e 4 MG Oral nazine 2018 {tbl} ed tablet by ([facility] Tablet 4 mg 12:00: oral route [facility] perphenazin tablet 00 AM every Medi fletcher e 4 mg EDT bedtime for Center ) tablet psychosis Zolpidem Amb ORAL complet Zolpidem NEXTGEN tartrate 10 10 mg 2018 {tbl} ed tartrate 10 ([facility] MG Oral tablet 12:00: MG Oral [facility] Tablet 00 AM Tablet Medical [Ambien] EDT [Ambien] Center) Ambien 10 mg tablet Nortriptyli nortri ORAL complet take 2 NEXTGEN ne 25 MG ptylin 2018 {caps ed capsule by (S aint Oral e 25 12:00: ule} oral route [facility] Capsule mg 00 AM every Medical nortriptyli capsul EDT bedtime for Center) ne 25 mg e anxiety/mood capsule Fluoxetine Prozac ORAL complet Fluoxet ine NEXTGEN 40 MG Oral 40 mg 2019 {caps ed 40 MG Oral ( [facility] Capsule capsul 12:00: ule} Capsule [facility] [Prozac] e 00 AM [Prozac] Medica l Prozac 40 EDT Center) mg capsule Zolpidem ORAL complet Zolpidem NEXTGEN tartrate 10 10 mg 2019 {tbl} ed tartrate 10 ([facility] MG Oral tablet 12:00: MG Oral [facility] Tablet 00 AM Tablet Medical [Ambien] EDT [Ambien] Center) Ambien 10 mg tablet Nortriptyli nortri ORAL complet take 2 NEXTGEN ne 25 MG ptylin 2018 {caps ed capsule by (S aint Oral e 25 12:00: ule} oral route [facility] Capsule mg 00 AM every Medical nortriptyli capsul EDT bedtime for Center) ne 25 mg e anxiety/mood capsule Perphenazin perphe ORAL complet take 1 NEXTGEN e 4 MG Oral nazine 2019 {tbl} ed tablet by ([facility] Tablet 4 mg 12:00: oral route [facility] perphenazin tablet 00 AM every Medi fletcher e 4 mg EDT bedtime for Center ) tablet psychosis Fluoxetine Prozac ORAL complet Fluoxet ine NEXTGEN 40 MG Oral 40 mg 2019 {caps ed 40 MG Oral ( [facility] Capsule capsul 12:00: ule} Capsule [facility] [Prozac] e 00 AM [Prozac] Medica l Prozac 40 EDT Center) mg capsule Fluoxetine Prozac ORAL complet Fluoxet ine NEXTGEN 40 MG Oral 40 mg 2018 {caps ed 40 MG Oral ( [facility] Capsule capsul 12:00: ule} Capsule [facility] [Prozac] e 00 AM [Prozac] Medica l Prozac 40 EDT Center) mg capsule Perphenazin perphe ORAL complet take 1 NEXTGEN e 4 MG Oral nazine 2018 {tbl} ed tablet by ([facility] Tablet 4 mg 12:00: oral route [facility] perphenazin tablet 00 AM every Medi fletcher e 4 mg EDT bedtime for Center ) tablet psychosis Nortriptyli nortri ORAL complet take 2 NEXTGEN ne 25 MG ptylin 2018 {caps ed capsule by (S aint Oral e 25 12:00: ule} oral route [facility] Capsule mg 00 AM every Medical nortriptyli capsul EDT bedtime for Center) ne 25 mg e anxiety/mood capsule Zolpidem Ambien ORAL complet Zolpidem NEXTGEN tartrate 10 10 mg 2018 {tbl} ed tartrate 10 ([facility] MG Oral tablet 12:00: MG Oral [facility] Tablet 00 AM Tablet Medical [Ambien] EDT [Ambien] Center) Ambien 10 mg tablet Zolpidem Ambien ORAL complet Zolpidem NEXTGEN tartrate 10 10 mg 2018 {tbl} ed tartrate 10 ([facility] MG Oral tablet 12:00: MG Oral [facility] Tablet 00 AM Tablet Medical [Ambien] EDT [Ambien] Center) Ambien 10 mg tablet Fluoxetine Prozac ORAL complet Fluoxet ine NEXTGEN 40 MG Oral 40 mg 2018 {caps ed 40 MG Oral ( [facility] Capsule capsul 12:00: ule} Capsule [facility] [Prozac] e 00 AM [Prozac] Medica l Prozac 40 EDT Center) mg capsule Perphenazin perphe ORAL complet take 1 NEXTGEN e 4 MG Oral nazine 2019 {tbl} ed tablet by ([facility] Tablet 4 mg 12:00: oral route [facility] perphenazin tablet 00 AM every Medi fletcher e 4 mg EDT bedtime for Center ) tablet psychosis Nortriptyli nortri ORAL complet take 2 NEXTGEN ne 25 MG ptylin 2018 {caps ed capsule by (S aint Oral e 25 12:00: ule} oral route [facility] Capsule mg 00 AM every Medical nortriptyli capsul EDT bedtime for Center) ne 25 mg e anxiety/mood capsule Zolpidem Ambien ORAL complet Zolpidem NEXTGEN tartrate 10 10 mg 2018 {tbl} ed tartrate 10 ([facility] MG Oral tablet 12:00: MG Oral [facility] Tablet 00 AM Tablet Medical [Ambien] EDT [Ambien] Center) Ambien 10 mg tablet Perphenazin perphe ORAL complet take 1 NEXTGEN e 4 MG Oral nazine 2019 {tbl} ed tablet by ([facility] Tablet 4 mg 12:00: oral route [facility] perphenazin tablet 00 AM every Medi fletcher e 4 mg EDT bedtime for Center ) tablet psychosis Nortriptyli nortri ORAL complet take 2 NEXTGEN ne 25 MG ptylin 2018 {caps ed capsule by (S aint Oral e 25 12:00: ule} oral route [facility] Capsule mg 00 AM every Medical nortriptyli capsul EDT bedtime for Center) ne 25 mg e anxiety/mood capsule Fluoxetine Prozac ORAL complet Fluoxet ine NEXTGEN 40 MG Oral 40 mg 2018 {caps ed 40 MG Oral ( [facility] Capsule capsul 12:00: ule} Capsule [facility] [Prozac] e 00 AM [Prozac] Medica l Prozac 40 EDT Center) mg capsule Fluoxetine Prozac ORAL complet Fluoxet ine NEXTGEN 40 MG Oral 40 mg 2019 {caps ed 40 MG Oral ( [facility] Capsule capsul 12:00: ule} Capsule [facility] [Prozac] e 00 AM [Prozac] Medica l Prozac 40 EST Center) mg capsule Perphenazin perphe ORAL complet take 1 NEXTGEN e 4 MG Oral nazine 2019 {tbl} ed tablet by ([facility] Tablet 4 mg 12:00: oral route [facility] perphenazin tablet 00 AM every Medi fletcher e 4 mg EST bedtime for Center ) tablet psychosis Zolpidem Ambien ORAL complet Zolpidem NEXTGEN tartrate 10 10 mg 2019 {tbl} ed tartrate 10 ([facility] MG Oral tablet 12:00: MG Oral [facility] Tablet 00 AM Tablet Medical [Ambien] EST [Ambien] Center) Ambien 10 mg tablet Nortriptyli nortri ORAL complet take 2 NEXTGEN ne 25 MG ptylin 2018 {caps ed capsule by (S aint Oral e 25 12:00: ule} oral route [facility] Capsule mg 00 AM every Medical nortriptyli capsul EST bedtime for Center) ne 25 mg e anxiety/mood capsule Perphenazin perphe ORAL active take 1 NEXTGEN e 4 MG Oral nazine 2019 {tbl} tablet by ([facility] Tablet 4 mg 12:00: oral route [facility] perphenazin tablet 00 AM every Medi fletcher e 4 mg EST bedtime for Center ) tablet psychosis Nortriptyli nortri ORAL active take 2 NEXTGEN ne 25 MG ptylin 2019 {caps capsule by (S aint Oral e 25 12:00: ule} oral route [facility] Capsule mg 00 AM every Medical nortriptyli capsul EST bedtime for Center) ne 25 mg e anxiety/mood capsule Fluoxetine Prozac ORAL active Fluoxeti ne NEXTGEN 40 MG Oral 40 mg 2019 {caps 40 MG Oral ( [facility] Capsule capsul 12:00: ule} Capsule [facility] [Prozac] e 00 AM [Prozac] Medica l Prozac 40 EST Center) mg capsule Zolpidem Ambien ORAL active Zolpidem N EXTGEN tartrate 10 10 mg 2019 {tbl} tartrate 10 ([facility] MG Oral tablet 12:00: MG Oral [facility] Tablet 00 AM Tablet Medical [Ambien] EST [Ambien] Center) Ambien 10 mg tablet Fluoxetine Prozac .00 ORAL active Fluoxeti ne NEXTGEN 40 MG Oral 40 mg 2012 {caps 40 MG Oral ( [facility] Capsule Cap 12:00: ule} Capsule [facility] [Prozac] 00 AM [Prozac] Medica l Prozac 40 EST Center) mg Cap Zolpidem zolpid 1 complet [facility] tartrate 10 em 10 ed [facility] MG Oral mg Medical Tablet Tablet Center zolpidem 10 , mg Tablet, Ordere Ordered By: d By: Taisha Krishnamurthy Varinder-Bon eth illa, [place] NPDirection r-Darrion s: 1 tablet lla, oral daily NPDire at bedtime ctions for : 1 insomnia tablet oral daily at bedtim e for insomn ia Perphenazin perphe 1 complet Roland nt e 4 MG Oral nazine ed Robert s Tablet 4 mg Medical perphenazin Tablet Center e 4 mg , Tablet, Ordere Ordered By: d By: Taisha Krishnamurthy [facility] eth illa, [place] NPDirection r-Darrion s: 1 tablet lla, oral daily NPDire at bedtime ctions for : 1 psychosis tablet oral daily at bedtim e for psycho sis Fluoxetine FLUoxe 1 complet Allison t 40 MG Oral mal ed [facility] Capsule 40 mg Medical FLUoxetine Capsul Center 40 mg e, Capsule, Ordere Ordered By: d By: Taisha Bañuelosidor-Bon eth illa, [place] NPDirection r-Darrion s: 1 lla, capsule NPDire oral daily ctions for : 1 depression capsul e oral daily for depres dante Nortriptyli nortri 2 complet Roland nt ne 25 MG ptylin ed Rashid Oral e 25 Medical Capsule mg Center nortriptyli Capsul ne 25 mg e, Capsule, Ordere Ordered By: d By: Taisha Krishnamurthy Varinder-Bon eth illa, Tex[place] NPDirection r-Darrion s: 2 lla, capsule NPDire oral daily ctions before : 2 sleeping capsul for adj. e oral for daily depression before sleepi ng for adj. for depres dante Insurance Providers Payer name Policy type Policy ID Covered Covered democrat's Policy P razia / Coverage democrat ID relationship to [place] ormation type costa MVP MEDICAID [id number] SP [id number] HMO [place] [id number] self [id number] HEALTH OPTION MVP/HHP O [id number] 01 [id number] 300 O MVP/HHP O [id number] 01 [id number] 300 [place] O [id number] 01 [id number] 300 HEALTH OPTION [place] [id number] self [id number] HEALTH OPTIONS O [id number] 01 [id number] 300 "" O [id number] 01 [id number] 300 [place]ACON O [id number] 01 [id number] 300 HEALTH OPTIONS MVP HEALTH [id number] self [id number] PL[employer] Problems, Conditions, and Diagnoses Code Display Name Description Problem Type Effective Dates Data Source(s) 41465043 Joint pain Joint pain Problem 09/21/2009 [facility] ([facility] 12:00:00 AM [facility]) [id number] Single major Single major Problem 09/01/2009 [facility] (S aint depressive depressive 12:00:00 AM [facility]) F33.2 Major depressive MAJOR DEPRESSV Diagnosis 06/15/2019 Allison Mike disorder, DISORDER, 10:03:00 AM EST Medical C enter recurrent severe RECURRENT SEVERE without W/O PSYCH psychotic FEATURES features Diagnosis [facility] ([facility]) Diagnosis [facility] ([facility]) Surgeries/Procedures Procedure Description Date Indications Data Source(s) Psychotherapy (30 Mins) 02/13/2020 [facility] ([facility] W/ E&M 12:00:00 AM [facility] 02/13/2020 [place]) 12:00:00 AM EDT OFFICE/OUTPATIENT VISIT, 02/13/2020 [facility] ([facility] EST 12:00:00 AM [facility] 02/13/2020 [place]) 12:00:00 AM EDT Psychotherapy (30 Mins) 12/19/2019 [facility]EXT [facility] ([facility] W/ E&M 12:00:00 AM [facility] 12/19/2019 Center) 12:00:00 AM EDT OFFICE/OUTPATIENT VISIT, 12/19/2019 [facility] ([facility] EST 12:00:00 AM EDT [facility] - 12/19/2019 [facility]) 12:00:00 AM EDT Psychotherapy (30 Mins) 11/13/2019 [facility] ([facility] W/ E&M 12:00:00 AM EDT [facility] - 11/13/2019 [place]) 12:00:00 AM EDT OFFICE/OUTPATIENT VISIT, 11/13/2019 NEX TGEN ([facility] EST 12:00:00 AM EDT [facility] - 11/13/2019 Center) 12:00:00 AM EDT OFFICE/OUTPATIENT VISIT, 09/20/2019 [facility] ([facility] EST 12:00:00 AM EDT [facility] - 09/20/2019 [place]) 12:00:00 AM EDT Psychotherapy (30 Mins) 07/26/2019 [facility] ([facility] W/ E&M 12:00:00 AM EST [facility] - 07/26/2019 [place]) 12:00:00 AM EST OFFICE/OUTPATIENT VISIT, 07/26/2019 [facility] ([facility] EST 12:00:00 AM EST [facility]id [facility] - 07/26/2019 [place]) 12:00:00 AM EST Psychotherapy (30 Mins) 05/31/2019 [facility] ([facility] W/ E&M 12:00:00 AM EST [facility] - 05/31/2019 [place]) 12:00:00 AM EST OFFICE/OUTPATIENT VISIT, 05/31/2019 [facility] TG[facility] ([facility] EST 12:00:00 AM EST Rashid [facility] - 05/31/2019 [place]) 12:00:00 AM EST Psychotherapy (30 Mins) 04/18/2019 [facility] ([facility] W/ E&M 12:00:00 AM EST [facility] - 04/18/2019 [place]) 12:00:00 AM EST OFFICE/OUTPATIENT VISIT, 04/18/2019 NEX TGEN ([facility] EST 12:00:00 AM EST [facility]id [facility] - 04/18/2019 [place]) 12:00:00 AM EST Psychotherapy (30 Mins) 03/21/2019 [facility] ([facility] W/ E&M 12:00:00 AM EDT [facility] - 03/21/2019 [place]) 12:00:00 AM EDT OFFICE/OUTPATIENT VISIT, 03/21/2019 NEX TGEN ([facility] EST 12:00:00 AM EDT [facility] - 03/21/2019 Center) 12:00:00 AM EDT Psychotherapy (30 Mins) 02/20/2019 [facility] ([facility] W/ E&M 12:00:00 AM EDT [facility] - 02/20/2019 Center) 12:00:00 AM EDT OFFICE/OUTPATIENT VISIT, 02/20/2019 NEX TGEN ([facility] EST 12:00:00 AM EDT [facility] - 02/20/2019 Center) 12:00:00 AM EDT Psychotherapy (30 Mins) 01/18/2019 [facility]EXT [facility] ([facility] W/ E&M 12:00:00 AM EDT [facility] - 01/18/2019 [place]) 12:00:00 AM EDT OFFICE/OUTPATIENT VISIT, 01/18/2019 NEX TGEN ([facility] EST 12:00:00 AM EDT [facility] - 01/18/2019 [place]) 12:00:00 AM EDT Psychotherapy (30 Mins) 12/24/2018 [facility] ([facility] W/ E&M 12:00:00 AM EDT [facility] - 12/24/2018 Center) 12:00:00 AM EDT OFFICE/OUTPATIENT VISIT, 12/24/2018 NEX TGEN ([facility] EST 12:00:00 AM EDT [facility] - 12/24/2018 Center) 12:00:00 AM EDT Psychotherapy (30 Mins) 11/26/2018 [facility] ([facility] W/ E&M 12:00:00 AM EDT [facility] - 11/26/2018 [place]) 12:00:00 AM EDT OFFICE/OUTPATIENT VISIT, 11/26/2018 NEX TGEN ([facility] EST 12:00:00 AM EDT [facility] - 11/26/2018 Center) 12:00:00 AM EDT Psychotherapy (30 Mins) 10/04/2018 [facility] ([facility] W/ E&M 12:00:00 AM EDT [facility] - 10/04/2018 Center) 12:00:00 AM EDT OFFICE/OUTPATIENT VISIT, 10/04/2018 NEX TGEN ([facility] EST 12:00:00 AM EDT [facility] - 10/04/2018 [place]) 12:00:00 AM EDT Psychotherapy (30 Mins) 08/09/2018 [facility] ([facility] W/ E&M 12:00:00 AM EST [facility] - 08/09/2018 Center) 12:00:00 AM EST OFFICE/OUTPATIENT VISIT, 08/09/2018 N[facility] TGEN ([facility] EST 12:00:00 AM EST [facility] - 08/09/2018 [facility]) 12:00:00 AM EST Psychotherapy (30 Mins) 06/15/2018 [facility] ([facility] W/ E&M 12:00:00 AM EST [facility] - 06/15/2018 [place]) 12:00:00 AM EST OFFICE/OUTPATIENT VISIT, 06/15/2018 [facility]EX TGEN ([facility] EST 12:00:00 AM EST [facility] - 06/15/2018 [place]) 12:00:00 AM EST Results ID Date Data Source [id number] 03/02/2020 01:10:00 PM EDT [facility] Name Value Range Interpretation Description Data Sup porting Code Source(s) Document(s ) 2018 Novel [facility] Coronavirus RNA Interpretation Unspecified Specimen Qualitative LISA Probe Detection This lab was ordered by [facility] and reported by [facility]. Procedure Social History Code Duration Value Status Description Data Source(s ) Caffeine Use 02/13/2020 completed [facility]EXT[facility] ([facility] nt Details 12:00:00 AM [facility]) Smoking 02/13/2020 Unknown if completed Unknown if ever [facility] ( [facility] 12:00:00 AM EDT ever smoked smoked [facility]) Caffeine Use 12/19/2019 completed [facility]EXT[facility] ([facility] nt Details 12:00:00 AM [facility]) Alcohol Use completed NEXTGEN (Allison t Details [facility]) Smoking Unknown if completed Unknown if ever [facility] eph [facility] smoked [facility] Treatment Plan of Care Planned Activity Planned Date Details Description Data Source (s) Fluoxetine 40 MG Oral 02/13/2020 12:00:00 [facility] ([facility] Capsule [Prozac] [facility]) Perphenazine 4 MG Oral 02/13/2020 12:00:00 [facility] ([facility] Tablet [facility]) Nortriptyline 25 MG Oral 02/13/2020 12:00:00 [facility] ([facility] Capsule [facility]) Zolpidem tartrate 10 MG 02/13/2020 12:00:00 [facility] ([facility] Oral Tablet [Ambien] [facility]) Zolpidem tartrate 10 MG 12/19/2019 12:00:00 [facility] ([facility] Oral Tablet [Ambien] [facility]) Nortriptyline 25 MG Oral 12/19/2019 12:00:00 NEXTGEN ([facility] Capsule [facility]) Perphenazine 4 MG Oral 12/19/2019 12:00:00 NEXT[facility] ([facility] Table[facility]) Fluoxetine 40 MG Oral 12/19/2019 12:00:00 NEXT[facility] ([facility] Capsule [Prozac] [facility]) Fluoxetine 40 MG Oral 11/12/2019 12:00:00 NEXT[facility] ([facility] Capsule [Prozac] [facility]) Perphenazine 4 MG Oral 11/12/2019 12:00:00 NEXT[facility] ([facility] Tablet [facility]) Nortriptyline 25 MG Oral 11/12/2019 12:00:00 NEXT[facility] ([facility] Capsule [facility]) Zolpidem tartrate 10 MG 11/12/2019 12:00:00 NEXT[facility] ([facility] Oral Tablet [Ambien] [facility]) Fluoxetine 40 MG Oral 09/20/2019 12:00:00 NEXT[facility] ([facility] Capsule [Prozac] [facility]) Perphenazine 4 MG Oral 09/20/2019 12:00:00 NEXT[facility] ([facility] Tablet [facility]) Nortriptyline 25 MG Oral 09/20/2019 12:00:00 [facility] ([facility] Capsule [facility]) Zolpidem tartrate 10 MG 09/20/2019 12:00:00 NEXT[facility] ([facility] Oral Tablet [Ambien] [facility]) Fluoxetine 40 MG Oral 07/26/2019 12:00:00 [facility] ([facility] Capsule [Prozac] [facility]) Perphenazine 4 MG Oral 07/26/2019 12:00:00 [facility]EXT[facility] ([facility] Tablet [facility]) Nortriptyline 25 MG Oral 07/26/2019 12:00:00 NEXT[facility] ([facility] Capsule [facility]) Zolpidem tartrate 10 MG 07/26/2019 12:00:00 NEXT[facility] ([facility] Oral Tablet [Ambien] [facility]) Fluoxetine 40 MG Oral 04/18/2019 12:00:00 [facility] ([facility] Capsule [Prozac] [facility]) Perphenazine 4 MG Oral 04/18/2019 12:00:00 [facility]EXT[facility] ([facility] Tablet [facility]) Nortriptyline 25 MG Oral 04/18/2019 12:00:00 [facility] ([facility] Capsule [facility]) Zolpidem tartrate 10 MG 04/18/2019 12:00:00 NEXT[facility] ([facility] Oral Tablet [Ambien] [facility]) Zolpidem tartrate 10 MG 03/21/2019 12:00:00 NEXT[facility] ([facility] Oral Tablet [Ambien] [facility]) Nortriptyline 25 MG Oral 03/21/2019 12:00:00 [facility] ([facility] Capsule [facility]) Perphenazine 4 MG Oral 03/21/2019 12:00:00 NEXT[facility] ([facility] Tablet [facility]) Fluoxetine 40 MG Oral 03/21/2019 12:00:00 NEXT[facility] ([facility] Capsule [Prozac] [facility]) Zolpidem tartrate 10 MG 02/20/2019 12:00:00 NEXT[facility] ([facility] Oral Tablet [Ambien] [facility]) Nortriptyline 25 MG Oral 02/20/2019 12:00:00 NEXT[facility] ([facility] Capsule [facility]) Perphenazine 4 MG Oral 02/20/2019 12:00:00 NEXT[facility] ([facility] Tablet [facility]) Fluoxetine 40 MG Oral 02/20/2019 12:00:00 NEXT[facility] ([facility] Capsule [Prozac] [facility]) Fluoxetine 40 MG Oral 01/18/2019 12:00:00 NEXT[facility] ([facility] Capsule [Prozac] [facility]) Perphenazine 4 MG Oral 01/18/2019 12:00:00 NEXTGEN ([facility] Tablet [facility]) Nortriptyline 25 MG Oral 01/18/2019 12:00:00 NEXT[facility] ([facility] Capsule [facility]) Zolpidem tartrate 10 MG 01/18/2019 12:00:00 NEXTGEN ([facility] Oral Tablet [Ambien] [facility]) Fluoxetine 40 MG Oral 12/24/2018 12:00:00 NEXTGEN ([facility] Capsule [Prozac] [facility]) Perphenazine 4 MG Oral 12/24/2018 12:00:00 NEXTGEN ([facility] Tablet [facility]) Nortriptyline 25 MG Oral 12/24/2018 12:00:00 NEXT[facility] ([facility] Capsule [facility]) Zolpidem tartrate 10 MG 12/24/2018 12:00:00 NEXTGEN ([facility] Oral Tablet [Ambien] [facility]) Fluoxetine 40 MG Oral 11/26/2018 12:00:00 NEXTGEN ([facility] Capsule [Prozac] [facility]) Perphenazine 4 MG Oral 11/26/2018 12:00:00 NEXTGEN ([facility] Tablet [facility]) Nortriptyline 25 MG Oral 11/26/2018 12:00:00 NEXT[facility] ([facility] Capsule [facility]) Zolpidem tartrate 10 MG 11/26/2018 12:00:00 NEXT[facility] ([facility] Oral Tablet [Ambien] [facility]) Fluoxetine 40 MG Oral 10/04/2018 12:00:00 NEXTGEN ([facility] Capsule [Prozac] [facility]) Perphenazine 4 MG Oral 10/04/2018 12:00:00 NEXTGEN ([facility] Tablet [facility]) Nortriptyline 25 MG Oral 10/04/2018 12:00:00 NEXT[facility] ([facility] Capsule [facility]) Zolpidem tartrate 10 MG 10/04/2018 12:00:00 NEXT[facility] ([facility] Oral Tablet [Ambien] [facility]) Fluoxetine 40 MG Oral 08/09/2018 12:00:00 N[facility] ([facility] Capsule [Prozac] [facility]) Nortriptyline 25 MG Oral 08/09/2018 12:00:00 NEXT[facility] ([facility] Capsule AM EST [facility]) Perphenazine 4 MG Oral 08/09/2018 12:00:00 NEXTGEN ([facility] Tablet [facility]) Zolpidem tartrate 10 MG 08/09/2018 12:00:00 NEXTGEN ([facility] Oral Tablet [Ambien] [facility]) Fluoxetine 40 MG Oral 06/15/2018 12:00:00 NEXTGEN ([facility] [Prozac] [facility]) Zolpidem tartrate 10 MG 06/15/2018 12:00:00 NEXTGEN ([facility] Oral Tablet [Ambien] [facility]) Perphenazine 4 MG Oral 06/15/2018 12:00:00 NEXTGEN ([facility] Tablet [facility]) Nortriptyline 25 MG Oral 06/15/2018 12:00:00 NEXTGEN ([facility]) Fluoxetine 40 MG Oral 07/31/2011 12:00:00 NEXTGEN ([facility] Capsule [Prozac] [facility]) Zolpidem tartrate 10 MG [facility] Oral Tablet [place] Fluoxetine 40 MG Oral [facility] Perphenazine 4 MG Oral [facility] Nortriptyline 25 MG Oral [facility]
--- NOTE | 2020-03-10 22:50 | PDOC ---
Attending Attestation - Resident Resident Name: Chino Bergman - ED Attending Attestation I have performed the following: I have examined & evaluated the patient, The case was reviewed & discussed with the resident, I agree w/resident's findings & plan - HPI HPI: 03/10/20 23:44 see resident hpi - Physicial Exam PE: 03/10/20 23:44 see resident exam - Medical Decision Making 03/10/20 23:44 64-year-old female with pain to the left posterior leg advised to come in to rule out DVT Lower extremity ultrasound is negative There is no associated back pain, deep tendon reflexes are equal There is no sensory deficit Motor is intact There is no bony tenderness or indication for plain radiographs at this time Of note there was a Burnham's cyst noted on ultrasound Plan for DC with orthopedic follow-up Discharge - Discharge Information Problems reviewed: Yes Clinical Impression/Diagnosis: Leg pain Qualifiers: Laterality: left Qualified Code(s): M79.605 - Pain in left leg - Follow up/Referral Referrals: Eugene Mccarthy MD [Primary Care Provider] - - Patient Discharge Instructions - Post Discharge Activity
--- NOTE | 2020-03-10 23:45 | PDOC ---
History of Present Illness - General Chief Complaint: Pain Stated Complaint: LT LEG PAIN Time Seen by Provider: 03/10/20 21:33 History Source: Patient Exam Limitations: No Limitations - History of Present Illness Initial Comments: 03/10/20 23:48 64 yo F with a hx of HTN and HLD presents to the emergency department with left knee pain. per the patient, she has a family member that is a physician and recommended to have a DVT rule out. Per the patient, the pain has been ongoing for 2-3 days. Denies change in activity level and denies hx of DVT/PE. Denies the following: recent long travels, prolonged immobilization of the leg, and recent surgeries. She states the pain is sharp in the back of the left knee that worsens with movement. Denies leg swelling and erythema. Denies surgical intervention in the left knee. Allergies: NKDA Past History - Medical History Allergies/Adverse Reactions: Allergies Allergy/AdvReac Type Severity Reaction Status Date / Time No Known Allergies Allergy Verified 06/28/17 12:37 Home Medications: Ambulatory Orders Aspirin 81 mg PO DAILY 06/27/17 Calcium Carbonate [Calcium] 500 mg PO DAILY 06/27/17 Gabapentin 300 mg PO DAILY 06/27/17 Lansoprazole [Prevacid] 30 mg PO DAILY 06/27/17 Meloxicam 15 mg PO DAILY 06/27/17 Multivitamin [Poly-Vitamin] 1 each PO DAILY 06/27/17 Nizatidine 150 mg PO DAILY 06/27/17 Rosuvastatin Calcium [Crestor] 10 mg PO DAILY 06/27/17 Anemia: No Asthma: No Cancer: No Cardiac Disorders: Yes (HX BRADYCARDIA) CVA: No COPD: No CHF: No Dementia: No Diabetes: No GI Disorders: No Disorders: No HTN: No Hypercholesterolemia: Yes Liver Disease: No Seizures: No Thyroid Disease: No - Surgical History Cholecystectomy: Yes Orthopedic Surgery: Yes - Psycho-Social/Smoking History Smoking Status: No Smoking History: Never smoked Have you smoked in the past 12 months: No Number of Cigarettes Smoked Daily: 0 - Substance Abuse Hx (Audit-C & DAST Scrn) How often the patient has a drink containing alcohol: Never Score: In Men: 4 or > Positive; In Women: 3 or > Positive: 0 Screen Result (Pos requires Nsg. Audit-10AR): Negative Review of Systems - Review of Systems Able to Perform ROS?: Yes Is the patient limited Khmer proficient: No Constitutional: No: Chills, Diaphoresis, Fever, Weakness HEENTM: No: Eye Pain, Ear Pain, Nose Pain, Throat Pain Respiratory: No: Cough, Shortness of Breath Cardiac (ROS): No: Chest Pain, Edema, Lightheadedness, Palpitations ABD/GI: No: Constipated, Diarrhea, Nausea, Vomiting : No: Dysuria, Hematuria Musculoskeletal: Yes: Joint Pain (left knee). No: Back Pain, Neck Pain Integumentary: No: Erythema, Rash Neurological: No: Headache Psychiatric: No: Change in Appetite Hematologic/Lymphatic: No: Anemia, Blood Clots *Physical Exam - Vital Signs Last Vital Signs Temp Pulse Resp BP Pulse Ox 98.1 F 20 127/80 03/10/20 21:33 03/10/20 21:33 03/10/20 21:33 - Physical Exam General Appearance: Yes: Nourished, Appropriately Dressed. No: Apparent Distress, Intoxicated HEENT: positive: EOMI, MOHIT, Normal Voice, Symmetrical, Pharynx Normal, Hearing Grossly Normal. negative: Pale Conjunctivae, Scleral Icterus (R), Scleral Icterus (L), Muffled/Hoarse voice, Pharyngeal Erythema, Tonsillar Exudate, Tonsillar Erythema, Nasal Congestion, Rhinorrhea, Sinus Tenderness, Excessive drooling Neck: positive: Trachea midline, Supple. negative: Tender, Lymphadenopathy (R), Lymphadenopathy (L) Respiratory/Chest: positive: Lungs Clear, Normal Breath Sounds. negative: Chest Tender, Respiratory Distress, Accessory Muscle Use Cardiovascular: positive: Regular Rhythm, Regular Rate, S1, S2. negative: Sys tolic Murmur Gastrointestinal/Abdominal: positive: Normal Bowel Sounds, Flat, Soft. negative: Tender, Distended, Guarding Lymphatic: negative: Adenopathy Musculoskeletal: positive: Normal Inspection. negative: CVA Tenderness, Vertebral Tenderness Extremity: positive: Normal Capillary Refill, Normal Inspection, Normal Range of Motion, Tender (back of the left knee. cyst palpated. no erythema noted) Integumentary: positive: Normal Color, Dry, Warm Neurologic: positive: Alert, Normal Mood/Affect, Motor Strength 5/5 Medical Decision Making - Medical Decision Making 64 yo F with a hx of HTN and HLD presents to the emergency department with left knee pain. per the patient, she has a family member that is a physician and recommended to have a DVT rule out. Initial vitals: Initial Vital Signs Temp Resp BP 98.1 F 20 127/80 03/10/20 21:33 03/10/20 21:33 03/10/20 21:33 Work up: patient presents to the emergency department with left knee pain. patient does not have risk factors related to dvt/pe will obtain duplex of the left leg to rule out dvt/pe US is negative for DVT bakers cyst noted in the left popliteal fossa measuring 6.7x1.5 cm Will have ortho follow up in the discharge packet. Discharge - Discharge Information Problems reviewed: Yes Clinical Impression/Diagnosis: Burnham's cyst Leg pain Qualifiers: Laterality: left Qualified Code(s): M79.605 - Pain in left leg Disposition: HOME - Admission No - Follow up/Referral Referrals: Eugene Mccarthy MD [Primary Care Provider] - Jose Sandhu DO [Staff Physician] - - Patient Discharge Instructions Additional Instructions: You were seen in the emergency department for the evaluation of your left leg pain. Your ultrasound was negative for DVT. You have a burnham's cyst which can cause pain in the popliteal area which is in the back of the knee. Please follow up with the orthopedic surgeon within 2 weeks after discharge for follow up care and management. Please return to the emergency department if you have worsening symptoms. Thank you. - Post Discharge Activity Work/Back to School Note: Back to Work
[2020-03-11 00:52] VITALS: BP 129/67; PULSE 86
== END 2020-03-11 00:55 | disposition home or self-care (01) ==
LOC: JER 21:23
DX: M79.605 Pain in left leg (principal)
CPT/HCPCS: 93971-TC; 99284-25

== ENCOUNTER 2024-08-02 10:44 | Emergency (ER) | payer OTHER ==
[2024-08-02 11:08] VITALS: RESP 20; TEMP 97.4; BMI 29.2
[2024-08-02 11:25] LABS: EOS % 0.6 % (0-4.5); HEMATOCRIT 41.6 % (32.4-45.2); HEMOGLOBIN 14.1 GM/dL (10.7-15.3); LYMPH % 35.8 % (8-40); MCH 30.5 pg (25.7-33.7); MCHC 33.9 g/dl (32.0-36.0); MEAN PLT VOLUME 8.9 fl (7.5-11.1); MONO % 5.4 % (3.8-10.2); NEUT % 57.2 % (42.8-82.8); PLATELET COUNT 218 10^3/uL (134-434); RBC 4.62 M/mm3 (3.60-5.2); RDW 14.3 % (11.6-15.6); WHITE BLOOD COUNT 5.5 K/mm3 (4.0-10.0)
[2024-08-02 11:32] LABS: INR 0.9 (0.83-1.09); PROTHROMBIN TIME (PATIENT) 9.9 SEC (9.7-13.0)
[2024-08-02 11:35] LABS: ACTIVATED PTT 26.3 SECONDS (25.2-36.5)
[2024-08-02 11:46] LABS: POTASSIUM 4.2 mmol/L (3.5-5.1)
[2024-08-02 11:48] LABS: CALCIUM 9.3 mg/dL (8.5-10.1)
[2024-08-02 11:49] LABS: ALBUMIN 3.8 g/dl (3.4-5.0); BLOOD UREA NITROGEN 20.5 mg/dL (7-18)
[2024-08-02 11:52] LABS: CREATININE 0.8 mg/dL (0.55-1.3)
[2024-08-02 11:53] LABS: BILIRUBIN,TOTAL 0.3 mg/dL (0.2-1); TOT PROT 6.9 g/dl (6.4-8.2)
[2024-08-02] MEDS ORDERED: IBUPROFEN 400 MG TABLET (FP) PO ONE (12:20)
[2024-08-02] MEDS: IBUPROFEN 400 MG TABLET (FP) PO ONE (12:24)
[2024-08-02] MEDS ORDERED: ACETAMINOPHEN 325 MG TABLET (FP) ONE (13:05)
[2024-08-02] MEDS ORDERED: METOCLOPRAMIDE HCL INJECTION 10 MG/2 ML VIAL ONE (13:05)
[2024-08-02] MEDS ORDERED: MECLIZINE HCL 25 MG TABLET (FP) ONE (13:05)
[2024-08-02] MEDS: MECLIZINE HCL 25 MG TABLET (FP) PO ONE (13:13)
[2024-08-02] MEDS: SODIUM CHLORIDE 500 ML IV STA (13:13)
[2024-08-02] MEDS: METOCLOPRAMIDE HCL INJECTION 10 MG/2 ML VIAL IVPUSH ONE (13:14)
[2024-08-02] MEDS: ACETAMINOPHEN 325 MG TABLET (FP) PO ONE (13:14)
[2024-08-02 14:48] VITALS: BP 100/55; PULSE 54
== END 2024-08-02 14:48 | disposition home or self-care (01) ==
LOC: JER 10:44
PROC: 3E033GC Introduction of Other Therapeutic Substance into Peripheral Vein, Percutaneous Approach (ICD-10-PCS; principal; 2024-08-02)
PROC: 3E0337Z Introduction of Electrolytic and Water Balance Substance into Peripheral Vein, Percutaneous Approach (ICD-10-PCS; 2024-08-02)
DX: R07.89 Other chest pain (principal); R42 Dizziness and giddiness; R51.9 Headache, unspecified; R53.1 Weakness; Z20.822 Contact with and (suspected) exposure to COVID-19
CPT/HCPCS: 0241U-QW; 36415; 71045-TC-FY; 80053; 83735; 84484; 85025; 85610; 85730; 93005; 93010; 96361; 96374; 99285-25

== ENCOUNTER 2024-10-31 05:21 | Day surgery (SDC) | payer OTHER ==
[2024-10-25 16:45] VITALS: BMI 29.2
[2024-10-31] MEDS ORDERED: ACETAMINOPHEN 500 MG TABLET (FP) PO PRN (08:44)
[2024-10-31] MEDS: LIDOCAINE HCL 1% PRESERVATIVE FREE - 30ML VIAL IJ ONE ×3 (09:27)
[2024-10-31 09:54] VITALS: BP 116/45; PULSE 70; RESP 18; TEMP 97.4
== END 2024-10-31 10:39 | disposition home or self-care (01) ==
LOC: JASU-SURG 05:21
PROVIDERS: ATTEND Pain Medicine Pain Medicine
PROC: 01HY3MZ Insertion of Neurostimulator Lead into Peripheral Nerve, Percutaneous Approach (ICD-10-PCS; principal; 2024-10-31 09:00)
DX: G89.4 Chronic pain syndrome (principal); M54.6 Pain in thoracic spine
CPT/HCPCS: 64555; C1778; 76000-TC-FY